=== PATIENT | female | born 1945 | race Asian ===

== ENCOUNTER 2024-04-04 11:02 | Emergency (ER) | payer OTHER ==
[~2024-04-04] VITALS: Ht 162.6 cm; Wt 60.0 kg
[2024-04-04 11:04] VITALS: O2SAT 91
[2024-04-04] MEDS: SODIUM CHLORIDE 0.9% 1,000 ML IV ONE (11:34)
[2024-04-04] MEDS: ONDANSETRON HCL 4MG/2ML INJ IV STA (11:35)
[2024-04-04 11:42] LABS: BASOPHILS % 0.3 % (0.0-2.0); EOSINOPHILS % 0.3 % (0.0-5.0); HEMATOCRIT. 39.2 % (36.0-48.0); HEMOGLOBIN. 12.5 g/dL (12.0-16.0); LYMPHOCYTES % 29.9 % (20.0-50.0); MEAN CORPUSCULAR HEMOGLOBIN 31.3 pg (28.0-32.0); MEAN PLATELET VOLUME 7.2 fl (7.4-10.4); MONOCYTES % 6.4 % (2.0-8.0); NEUTROPHILS % 63.1 % (40.0-76.0); PLATELET 253 x1000/uL (130-400); WHITE BLOOD COUNT 7.6 x1000/uL (4.5-11.0)
[2024-04-04 12:03] LABS: CHLORIDE 110 mEq/L (98-107); POTASSIUM 4.1 mEq/L (3.5-5.1); SODIUM 142 mEq/L (136-145)
[2024-04-04 12:04] LABS: CALCIUM 8.9 mg/dL (8.7-10.4); CARBON DIOXIDE 24 mEq/L (21-32)
[2024-04-04 12:09] LABS: CREATININE 0.8 mg/dL (0.6-1.0); GLUCOSE 168 mg/dL (70-105); UREA NITROGEN BLOOD 22 mg/dL (9-23)
[2024-04-04 12:11] LABS: TROPONIN I HIGH SENSITIVITY 8 ng/L (3.0-34)
[2024-04-04 14:04] VITALS: BP 114/62; PULSE 65; RESP 19; TEMP 36.89184; O2SAT 100
== END 2024-04-04 14:26 | disposition home or self-care (01) ==
LOC: ER 11:02
DX: R55 Syncope and collapse (principal); E78.00 Pure hypercholesterolemia, unspecified; I10 Essential (primary) hypertension
CPT/HCPCS: 99285; 96360; 70450; 71045; 80048; 83880; 85025; 84484; 36415; 93005; J2405; J7030; 99284